=== PATIENT | female | born 1995 | race Caucasian/White ===

== ENCOUNTER → 2020-05-08 | Outpatient (CLI) | payer SELFPAY ==
[2020-05-11 03:07] LABS: Chlamydia By Nucleic Acid AMP Negative (Negative)
[2020-05-11 11:12] LABS: Gonococcus By Nucleic Acid AMP Negative (Negative)
[2020-05-11 14:22] LABS: HPV Reflexed? NOT INDICATED
== END | disposition home or self-care (01) ==
LOC: LABSPEC 16:33
PROVIDERS: Visit Provider Student in an Organized Health Care Education/Training Program
DX: Z12.4 Encounter for screening for malignant neoplasm of cervix (principal); Z11.3 Encounter for screening for infections with a predominantly sexual mode of transmission; Z32.01 Encounter for pregnancy test, result positive
CPT/HCPCS: 87491; 87591; 88175; G0145

== ENCOUNTER → 2020-05-22 14:57 | Outpatient (CLI) | payer SELFPAY ==
[2020-05-22 17:25] LABS: Absolute Lymphocyte Count 1.69 X10^3/uL (0.83-4.51); Absolute Neutrophil Count 7.4 X10^3/uL (2.0-7.7); Basophil# 0.05 X10^3/uL; Basophil% 0.5 % (0-1); Eosinophil# 0.04 X10^3/uL; Eosinophils% 0.4 % (0-5); Hematocrit 38.2 % (37-47); Hemoglobin 12.6 g/dL (12.0-15.0); Lymphocyte # 1.69 X10^3/ul (4.0); Lymphocyte % 17.2 % (19-41); Mean Corpuscular Hgb 28.5 pg (27.0-32.0); Mean Corpuscular Volume 86.4 fL (81-99); Mean Platelet Vol. 10.2 fl (6.2-12.0); Monocyte# 0.56 X10^3/uL; Monocyte% 5.7 % (0-10); NRBC Flagged by Analyzer 0 % (0-5); Neutrophil # 7.44 X10^3/uL (2.7-7.7); Neutrophil % 75.9 % (47-70); Platelet Count 297 K/mm3 (150-450); RBC Distribution Width CV 12.4 % (11.6-14.6); RBC Distribution Width SD 39.1 fl (35.1-43.9); Red Blood Count 4.42 M/mm3 (4.2-5.4); White Blood Count 9.8 K/mm3 (4.4-11.0)
[2020-05-23 09:30] LABS: HIV - WCH Non-Reactive (Nonreactive); Hepatitis B Surface Antigen Non-Reactive (Nonreactive); Hepatitis C Antibody Non-Reactive (Nonreactive); Rubella IgG Reactive (Nonreactive); Syphilis Antibodies Non-reactive
== END ==
PROVIDERS: Visit Provider Student in an Organized Health Care Education/Training Program
DX: Z34.81 Encounter for supervision of other normal pregnancy, first trimester (principal)
CPT/HCPCS: 36415; 85025; 86703; 86762; 86803; 87086; 87340

== ENCOUNTER → 2020-09-14 13:34 | Outpatient (CLI) | payer SELFPAY ==
[2020-09-14 15:33] LABS: Hematocrit 33.6 % (37-47); Hemoglobin 11.4 g/dL (12.0-15.0); Mean Corp Hgb Conc 33.9 g/dL (32-36); Mean Corpuscular Hgb 29.6 pg (27.0-32.0); Mean Corpuscular Volume 87.3 fL (81-99); Mean Platelet Vol. 9.1 fl (6.2-12.0); Platelet Count 251 K/mm3 (150-450); RBC Distribution Width CV 13.3 % (11.6-14.6); RBC Distribution Width SD 42.3 fl (35.1-43.9); Red Blood Count 3.85 M/mm3 (4.2-5.4); White Blood Count 10.8 K/mm3 (4.4-11.0)
[2020-09-14 15:36] LABS: Glucose Challenge Gest 1H 50g 71 mg/dL (70-140)
== END ==
PROVIDERS: Visit Provider Student in an Organized Health Care Education/Training Program
DX: Z34.82 Encounter for supervision of other normal pregnancy, second trimester (principal)
CPT/HCPCS: 36415; 82950; 85027

== ENCOUNTER → 2020-12-12 | Outpatient (CLI) | payer SELFPAY | END | disposition home or self-care (01) | LOC: LABSPEC 11:07 | PROVIDERS: Visit Provider Obstetrics & Gynecology | DX: Z36.85 Encounter for antenatal screening for Streptococcus B (principal) | CPT/HCPCS: 87081 ==

== ENCOUNTER 2021-01-04 05:50 | Inpatient (IN) | payer SELFPAY ==
[2021-01-04] VITALS (53 sets, daily range): BP systolic 101–126; BP diastolic 55–78; PULSE 77–106; RESP 18; TEMP 36.3–37.2; O2SAT 96–100; BMI 26.5
[2021-01-04] MEDS: Lactated Ringers 1,000 ML 50 ML IV (06:08)
[2021-01-04 06:32] LABS: Absolute Lymphocyte Count 1.45 X10^3/uL (0.83-4.51); Absolute Neutrophil Count 8.9 X10^3/uL (2.0-7.7); Basophil# 0.04 X10^3/uL; Basophil% 0.4 % (0-1); Eosinophil# 0.03 X10^3/uL; Eosinophils% 0.3 % (0-5); Hematocrit 35.2 % (37-47); Hemoglobin 11.7 g/dL (12.0-15.0); Lymphocyte # 1.45 X10^3/ul (0.83-4.51); Mean Corp Hgb Conc 33.2 g/dL (32-36); Mean Corpuscular Hgb 27.5 pg (27.0-32.0); Mean Corpuscular Volume 82.8 fL (81-99); Mean Platelet Vol. 9.1 fl (6.2-12.0); Monocyte# 0.61 X10^3/uL; Monocyte% 5.5 % (0-10); NRBC Flagged by Analyzer 0 % (0-5); Neutrophil # 8.93 X10^3/uL (2.7-7.7); Neutrophil % 80.1 % (47-70); Platelet Count 167 K/mm3 (150-450); RBC Distribution Width CV 13.1 % (11.6-14.6); RBC Distribution Width SD 39.2 fl (35.1-43.9); Red Blood Count 4.25 M/mm3 (4.2-5.4); White Blood Count 11.1 K/mm3 (4.4-11.0)
--- NOTE | 2021-01-04 07:52 | PCM.HP.BLA ---
History and Physical Date of Admission: 01/04/21 Chief complaint: Contractions History of present illness: 25-year-old G1 at 40 weeks and 1 day with BRAIN 01/03/2021 by LMP arrives with contractions. Denies headache, visual changes, chest pain, shortness of breath, nausea vomiting, right upper quadrant pain. Patient states good movement. Obstetric history: G1: Current Past medical history: None Medications: vitamin Past surgical history: None Allergies: No known drug allergies Social history: Denies smoking, alcohol use, drug use Family history: Denies history DVT or PE Review of systems: Besides above pertinent positives a full review of systems was performed and found to be negative Physical exam: Vital signs: Blood pressure 126/73 pulse 83 General: Normal-appearing no acute distress HEENT: Normocephalic/atraumatic no cervical lymphadenopathy Cardiac/respiratory: No use of accessory muscles, nonlabored breathing Abdomen: Soft, nontender, gravid Extremities: No peripheral edema normal peripheral pulses Psych: Normal affect normal demeanor nonpressured speech Labs: White blood cell count 11.1 hemoglobin 11.7 hematocrit 35.2% platelets 167. Blood type O+ antibody negative Assessment plan: 25-year-old at 40 weeks and 1 day in labor Admit labor and delivery See EFM GBS negative Routine orders Anesthesia to see
[2021-01-04] MEDS: Acetaminophen 500 MG Tablet PO (07:55)
[2021-01-04] MEDS: Lactated Ringers 500 ML 999 ML IV (09:48)
[2021-01-04] MEDS: fentaNYL-bupivacaine (epidural) 100 ML BAG EPIDURAL ×2 (10:06→14:42)
[2021-01-04] MEDS: Oxytocin 30 units/NS 500 ml 30 UNITS/500 ML IV.SOLN IV (12:15)
[2021-01-04] MEDS: Lactated Ringers 1,000 ML 200 ML IV (18:00)
[2021-01-04] MEDS: Oxytocin 30 units/NS 500 ml 30 UNITS/500 ML IV.SOLN 334 UNITS IV (19:08)
--- NOTE | 2021-01-04 19:57 | EX.PCM.OBRPT ---
Assessment & Plan (1) (spontaneous vaginal delivery): Maternal Data Information BRAIN Calculator Estimated Delivery Date Method Current WG Current Estimate 01/03/21 Manual 40w 1d Vaginal Delivery Maternal Presentation Maternal Presentation: Active Labor Maternal Presentation: pitocin augmentation Operative Information Date of Procedure: 01/04/21 Pre-Operative Diagnosis: 40 1/7 weeks gestation Post-Operative Diagnosis: 40 1/7 weeks gestation Surgery / Procedure Performed: Spontaneous Vaginal Delivery Type of Anesthesia: Epidural Drain: Rust to straight drain Estimated Blood Loss: 300 ml Findings Description of Procedure: Patient pushed to deliver a [vigorous] [male] infant. mouth and nares were bulb suctioned. The was placed on the maternal abdomen and further attended by nursery personnel. The cord was doubly clamped and cut at [5] minutes of life. The placenta delivered spontaneously and appeared intact on inspection. A right labial laceration with periurethral extension was repaired with 3-0 Vicryl Rapide. Sponge and needle counts were correct x2. Presentation: Vertex Time of Membrane Rupture: 1820 01/04/21 Amniotic Fluid Description: Clear Specimen(s) Removed: placenta Cord Vessel Description: 3 Vessels Cord Entanglement: None Nuchal Cord Compression: Without compression A Gender: Male (1 minute): 8 (5 minute): 9 Delayed Cord Clamping: Yes Post Vaginal Delivery Medications Given After Delivery: IV Pitocin Episiotomy Description: None Laceration: Periurethral Extnsion/lac
[2021-01-05 03:30] VITALS: BP 123/67; PULSE 91; RESP 18; TEMP 36.8
[2021-01-05] MEDS: Acetaminophen 500 MG Tablet 1000 MG PO ×2 (03:48→16:26)
[2021-01-05 08:20] VITALS: BP 119/75; PULSE 85; RESP 16; TEMP 36.4; O2SAT 98
--- NOTE | 2021-01-05 09:50 | PCM.PN.OB ---
Subjective Subjective She is sore. Voiding without difficulty. Denies heavy lochia. Tolerates a regular diet. No complaints. She is formula feeding her infant. Objective Data Objective Data Vital Signs: Vital Signs Temp Pulse Resp BP Pulse Ox 97.5 F L 85 16 119/75 98 01/05/21 08:20 01/05/21 08:20 01/05/21 08:20 01/05/21 08:20 01/05/21 08:20 Oxygen Delivery Method Room Air Weight: 65.8 kg Body Mass Index (BMI) 26.5 Intake & Output: Intake and Output for Last 24 Hours 01/03/21 01/04/21 01/05/21 23:59 23:59 23:59 Intake Total 2389.44 / 2389.44 Output Total 650 / 650 600 / 600 Balance 1739.44 / 1739.44 -600 / -600 Lab / Micro Data Result Diagrams: 01/04/21 06:13 Micro: Microbiology 01/04/21 06:13 Nasal Secretion SARS-CoV-2 Antigen (Rapid) - Final Physical Exam Const alert, oriented x3 and no apparent distress Resp normal respiratory effort and normal air movement Cardio regular rate, regular rhythm, S1 normal heart sound and S2 normal heart sound Uterus Palpation: uterus fundus firm and other OB fundus nontender Extremity no calf tenderness Neuro oriented x3 Assessment & Plan (1) (spontaneous vaginal delivery): PLAN: O pos, Rubella immune Formula feeding Routine care d/c home today
--- NOTE | 2021-01-05 09:53 | PCM.DC ---
Discharge Instructions Follow Up Care Test Results: Test results from this visit will be discussed in further detail at your follow-up appointment, if applicable. Discharge Plan Admission Admit Date/Time: 01/04/21 05:50 Primary Reason for Your Visit: Vaginal delivery Attending Provider: Faina Shrestha Instructions Patient Instructions: After a Vaginal , Understanding Blues Discharge Orders/Prescriptions Prescriptions: New ibuprofen 600 mg tablet 600 mg PO Q8H PRN (Reason: pain) Qty: 30 RF: 0 Continued [id number] 1 mg Tablet 1 tab PO DAILY RF: 0 omega-3 fatty acids Capsule 1 cap PO DAILY RF: 0 Disposition Disposition (needs filled in before D/C Order can be placed): Home, Self Care
[2021-01-05 11:35] VITALS: BP 120/67; PULSE 86; RESP 16; TEMP 36.4; O2SAT 98
[2021-01-05 17:11] VITALS: BP 116/75; PULSE 88; RESP 16; TEMP 36.4; O2SAT 97
[2021-01-05 20:15] VITALS: BP 116/70; PULSE 84; RESP 16; TEMP 36.1; O2SAT 97
== END 2021-01-05 21:50 | disposition home or self-care (01) | DRG 807 ==
LOC: WPOUT 05:50 → WP 05:50
PROVIDERS: Obstetrics & Gynecology; Admitting Provider Obstetrics & Gynecology; Visit Provider Obstetrics & Gynecology
DX: O71.82 Other specified trauma to perineum and vulva (principal); Z37.0 Single live birth; Z3A.40 40 weeks gestation of pregnancy
CPT/HCPCS: 59025; 59050; 85025; 86850; 86900; 86901; 87426; 99218; J7120; G0378